=== PATIENT | female | born 1985 | race Asian ===

== ENCOUNTER → 2020-09-02 08:01 | Outpatient (CLI) | payer SELFPAY ==
--- NOTE | ~2020-09-02 | MMUS_ITS ---
EXAMINATION: MM diagnostic prabhu BI w hanh, US breast RT limited HISTORY: Palpable lump in the upper outer quadrant of the left breast TECHNIQUE: Craniocaudal, mediolateral, and mediolateral oblique 3-D tomosynthesis images of the anita ts were performed and synthetic 2-D images were generated. CAD analysis was submitted and interpreted . High resolution limited left breast ultrasound was performed. COMPARISON: No prior mammogram is currently available for comparison. BREAST PARENCHYMAL COMPOSITION: The breasts are extremely dense, which lowers the sensitivity of mamm ography. FINDINGS: MAMMOGRAPHIC FINDINGS: There is no evidence of suspicious mass, calcification, or architectural distortion in either breast to suggest malignancy. No mammographic correlate is identified for the reported palpable abnormality of concern of the left breast ULTRASOUND: There is a 10 mm x 7 mm irregular, parallel, hypoechoic mass with spiculated margins, posterior acous tic shadowing, and no definite internal vascularity at the 1:00 location 1 cm from the nipple in the area of palpable concern. IMPRESSION: 1. Suspicious sonographically detected left breast mass. 2. Ultrasound-guided biopsy is recommended. BI-RADS category 4, suspicious findings. Reviewed, dictated and finalized at location A. IMPRESSION: 1. Suspicious sonographically detected left breast mass. 2. Ultrasound-guided biopsy is recommended. BI-RADS category 4, suspicious findings.
== END ==
DX: N63.11 Unspecified lump in the right breast, upper outer quadrant (principal); N63.22 Unspecified lump in the left breast, upper inner quadrant; R92.8 Other abnormal and inconclusive findings on diagnostic imaging of breast
CPT/HCPCS: 76642; 77062; 77066; G0279

== ENCOUNTER → 2021-08-08 05:02 | Outpatient (CLI) | payer OTHER, SELFPAY ==
[2021-08-08 12:01] LABS: SARS-CoV-2 RNA PCR Negative
== END ==
PROVIDERS: PCP Emergency Medicine; Visit Provider Emergency Medicine
DX: R53.83 Other fatigue (principal); Z20.822 Contact with and (suspected) exposure to COVID-19
CPT/HCPCS: C9803; U0003; U0005

== ENCOUNTER 2021-08-08 09:19 | Outpatient (CLI) | payer OTHER, SELFPAY ==
--- NOTE | ~2021-08-08 | XR_ITS ---
EXAMINATION: XR chest 2V 08/08/2021 09:41 INDICATION: Flulike symptoms. Fatigue. PROCEDURE: 2 view chest COMPARISON: No prior studies for comparison. FINDINGS: The lungs are clear. The cardiomediastinal silhouette is within normal limits. There are no pleural effusions. There is no pneumothorax suspected. IMPRESSION: 1: NO ACUTE CARDIOPULMONARY DISEASE. Reviewed, dictated and finalized at location A.
== END 2021-08-08 09:20 | disposition home or self-care (01) ==
LOC: ANHIMG 09:23
PROVIDERS: PCP Emergency Medicine; Visit Provider Emergency Medicine
DX: R53.83 Other fatigue (principal)
CPT/HCPCS: 71046

== ENCOUNTER 2021-08-23 12:23 | Emergency (ER) | payer OTHER, SELFPAY ==
[2021-08-23 12:38] VITALS: BP 99/59; PULSE 117; RESP 16; TEMP 38.9; O2SAT 98
--- NOTE | 2021-08-23 12:53 | PC.NURSE ---
in br to obtain ua spec.
--- NOTE | 2021-08-23 13:07 | ED.FEMALEGU ---
HPI - Female Genitourinary General Chief complaint: Fever Stated complaint: fever Time Seen by Provider: 08/23/21 12:40 Source: patient Mode of arrival: ambulatory Limitations: no limitations History of Present Illness HPI Narrative: is a 36-year-old female patient presenting to the clinic today with fever. She reports that she has had fever since the . States that her PCP sent her here for labs. Reports that she has noticed that she has been getting fever every month for the last 3 months with her periods. She denies any dysuria or urinary frequency. She had labs done recently and it showed that she had a urinary tract infection and she denies any symptoms at that time other than the fever. She has taken a COVID test and it was negative. Related Data Allergies Allergy/AdvReac Type Severity Reaction Status Date / Time No Known Allergies Allergy Verified 08/23/21 12:28 Review of Systems Review of Systems: Pertinent positives per HPI. Patient denies any chills, rash, headache, visual changes, dizziness, cough, runny nose, sore throat, shortness of breath, chest pain, palpitations, nausea, vomiting, diarrhea, constipation, abdominal pain, or any urinary issues. PMFSH Comments At the time of my signature, I reviewed and agree with the nursing past medical, surgical, social, and family history. There is no relevant family history pertinent to the patient complaint. Exam Narrative: General: Well-developed, well nourished, in no apparent distress Head: Normocephalic, atraumatic Eyes: Pupils equally round and reactive to light bilaterally, EOM intact, sclera and conjunctive clear, no discharge, lids normal Ears: TMs intact and clear, ear canals clear, no drainage, grossly hearing normal. Nose: Nares patent, no discharge, no inflammation, no sinus tenderness. Mouth: Oropharynx without lesions or masses, good dentition, MMM. Neck: Supple, trachea midline, no enlargement of anterior or posterior cervical nodes, no thyroid masses or goiter palpable. Cardio: Regular rate and rhythm, s1 and s2 normal, no murmur appreciated. Resp: Clear to auscultation bilaterally anteriorly and posteriorly, no rhonchi, rales, wheezing or rubs Abdomen: Soft, pliable, bowel sounds present in all quadrants, non-tender to palpation, no organomegly, no CVAT tenderness. Course Course Emergency Course: Portions of this record may have been created with voice recognition software. Level of Care: Express Care Visit Vital Signs Vital signs: Vital Signs Temperature 38.9 C H 08/23/21 12:38 Pulse Rate 117 H 08/23/21 12:38 Respiratory Rate 16 08/23/21 12:38 Blood Pressure 99/59 L 08/23/21 12:38 Pulse Oximetry 98 08/23/21 12:38 Oxygen Delivery Room Air 08/23/21 12:38 Temperature 38.9 C H 08/23/21 12:38 Pulse Rate 117 H 08/23/21 12:38 Respiratory Rate 16 08/23/21 12:38 Blood Pressure 99/59 L 08/23/21 12:38 Pulse Oximetry 98 08/23/21 12:38 Oxygen Delivery Room Air 08/23/21 12:38 Vital signs reviewed MDM - Female Genitourinary MDM Narrative Medical decision making narrative: At the time of visit patient is resting comfortably on the exam table. UA shows trace of leukocytes blood and ketones. She is currently on her menses. I will give her a course of cephalexin as it sounds that she had Macrobid before. Differential Diagnosis Differential diagnosis: Likely urinary tract infection, cystitis and other Lab Data Labs: Urine Glucose Negative Reference Range: Negative Urine Bilirubin Negative Reference Range: Negative Urine Ketone Trace Reference Range: Negative Urine Specific [place] 1.020 Reference Range:1.001-1.035
== END 2021-08-23 13:18 | disposition home or self-care (01) ==
PROVIDERS: Emergency Provider Nurse Practitioner Family; PCP Emergency Medicine
DX: N39.0 Urinary tract infection, site not specified (principal)
CPT/HCPCS: 81003; 87086; 87088; 87147; 99213; G0463